=== PATIENT | male | born 1995 | race American Indian/Alaskan Native ===

== ENCOUNTER 2021-01-14 23:06 | Emergency (ER) | payer MEDICAID, OTHER ==
[~2021-01-14] VITALS: Ht 182.9 cm; Wt 81.6 kg
--- NOTE | 2021-01-14 23:30 | NUR ---
Dr. Rico at bedside for MSE.
--- NOTE | 2021-01-14 23:41 | NUR ---
Xray at bedside.
[2021-01-14] MEDS ORDERED: KETOROLAC TROMETHAMINE 15 MG INJ IM ONE (23:45)
[2021-01-14] MEDS ORDERED: KETOROLAC TROMETHAMINE 15 MG INJ ONE (23:47)
--- NOTE | 2021-01-15 00:06 | NUR ---
Patient discharged to home in stable condition. Written and verbal after care instructions given. Patient verbalizes understanding of instructions. Stressed follow up or return to ER for worsening s/s. Pt out of ER with steady gait, no acute signs of distress, VSS, all belongings taken.
[2021-01-15 00:07] VITALS: BP 132/76
== END 2021-01-15 00:07 | disposition home or self-care (01) ==
LOC: ER 23:11 → EDBD 23:11 → ER 01-15 00:07
DX: S96.912A Strain of unspecified muscle and tendon at ankle and foot level, left foot, initial encounter (principal); V48.4XXA Person boarding or alighting a car injured in noncollision transport accident, initial encounter; Y92.89 Other specified places as the place of occurrence of the external cause; F17.200 Nicotine dependence, unspecified, uncomplicated
CPT/HCPCS: 73600; 73620; 96372; 99284; J1885; A4663